=== PATIENT | male | born 1940 | race Hispanic/Latino ===

== ENCOUNTER 2019-03-04 10:05 | Inpatient (IN) | payer MEDICARE, OTHER ==
[2019-03-04] VITALS (8 sets, daily range): BP systolic 132–143; BP diastolic 62–78
[~2019-03-04] VITALS: Ht 167.6 cm; Wt 79.6 kg
[~2019-03-04 10:05] MED LIST: GEMFIBROZIL1 GM; GLYBURIDE5 MG; METFORMIN HCL500 MG
--- OUTSIDE RECORDS SUMMARY | 2019-03-04 10:08 | XMS REPORT ---
Author Author [facility] Address Unknown Phone Unavailable Care Team Providers Care Helper Driver Name Role Phone Unavailable Unavailable Payers Payer Name Policy Type Policy Number Effective Date Expiration Date Problems This patient has no known problems. Allergies, Adverse Reactions, Alerts Allergy Name Allergy Type Status Severity Reaction(s) Onset Date Inactive Date Treating Clinician Comments No Known Allergies DA Active U 2018-12-19 00:00:00 No Known Allergies DA Active U 2011-03-14 00:00:00 Medications This patient has no known medications. Results Test Description Test Time Test Comments Text Results Atomic Results Result Comments - CT C-SPINE W/O CONTRAST 2018-12-19 16:44:00 Name: DESHAWN [facility]SH[facility] : 1940 Age/S: 78 / M [address] [facility] Unit #: [id number] Loc: [place] [address] Phys: Alex Tran MD Acct: [id number] Dis Date: Status: REG ER PHONE #: [phone] Exam Date: 12/19/2018 1618 FAX #: [phone] Reason: Fall EXAMS: CPT CODE: [id number] CT C-SPINE W/O CONTRAST 25119 REASON FOR EXAM: Fall EXAM ORDER DATE: 12/19/2018 3:58 PM Ordering M.D.: Alex Tran MD PROCEDURE: - CT C-SPINE W/O CONTRAST FINDINGS: CT images of the cervical spine were obtained without IV contrast at 2.5mm. Reconstructed coronal and sagittal images were also provided. Dose reduction techniques were applied Aside from anterior, lateral, and posterior osteophytes at C4-5. The vertebral bodies are intact. The central canal is patent. Severe narrowing of the disc spaces at C4-5 and C5-6 IMPRESSION: Severe disc disease and degenerative changes at C4-5 and C5-6. No acute findings at 1644 Reported and signed by: Conrad Ward M.D. CC: Alex Tran MD Technologist:Alyssa Escalera RT(R); Mildred Browning CTDI: DLP: Trnscb Date/Time: 12/19/2018 (1643) t.SDR.VTL Orig Print D/T: S: 12/19/2018 (6097) CTDI: DLP: PAGE 1 Signed Report - CT HEAD/BRAIN W/O CONT 2018-12-19 16:20:00 Name: DESHAWN ASHFORD [facility] : 1940 Age/S: 78 / M [address] [facility] Unit #: [id number] Loc: [place] [address] Phys: Alex Tran MD Acct: [id number] Dis Date: Status: PRE ER PHONE #: [phone] Exam Date: 12/19/2018 1618 FAX #: [phone] Reason: Fall EXAMS: CPT CODE: [id number] CT HEAD/BRAIN W/O CONT 18836 REASON FOR EXAM: Fall EXAM ORDER DATE: 12/19/2018 3:58 PM Ordering Nemo: Alex Tran MD PROCEDURE: - CT HEAD/BRAIN W/O CONT COMPARISON: FINDINGS: CT images of the brain were obtained without IV contrast. Dose reduction techniques were applied. Mild patchy low densities appearance of the paraventricular region noted consistent with nonspecific white matter disease. The deras-white matter delineation is unremarkable. The ventricles, cisterns, and sulci are unremarkable. There is no evidence of hemorrhage, mass, mass effect. There is no evidence of acute or old infarct. The calvarium is intact. IMPRESSION: Nonspecific deep white matter disease. No acute findings. at 1620 Reported and signed by: Conrad Ward M.D. CC: Alex Tran MD Technologist:Alyssa Escalera RT(R); Mildred Browning CTDI: DLP: Trnscb Date/Time: 12/19/2018 (0047) Michelle.VTL Orig Print D/T: S: 12/19/2018 (7121) CTDI: MAIKEL: PAGE 1 Signed Report
[2019-03-04] MEDS ORDERED: PIPER-TAZ 3.375 GM 50 ML IV STA (10:17)
[2019-03-04] MEDS ORDERED: VANCOMYCIN 1GM/NS 250 ML 250 ML IV STA (10:17)
[2019-03-04] MEDS ORDERED: SODIUM CHLORIDE 0.9% 1000ML 1,000 ML IV STA (10:17)
[2019-03-04 11:14] LABS: BASOPHILS % 0.4 % (0.0-1.0); EOSINOPHILS # (AUTO) 0.3 (0.0-0.4); EOSINOPHILS % 2.6 % (0.0-6.0); HEMATOCRIT 37.1 % (38.2-49.6); HEMOGLOBIN 12.9 g/dL (14.0-18.0); LYMPHOCYTES # (AUTO) 1.7 (1.0-3.2); LYMPHOCYTES % 16.9 % (18.0-39.1); MEAN CORPUSCULAR HEMOGLOBIN 30.5 pg (28-32); MEAN CORPUSCULAR HGB CONC 34.8 g/dL (31-35); MEAN CORPUSCULAR VOLUME 87.7 fL (81-99); MONOCYTES # (AUTO) 0.9 (0.2-0.8); MONOCYTES % 9.5 % (4.4-11.3); NEUTROPHILS # (AUTO) 6.8 (2.1-6.9); NEUTROPHILS % 69.7 % (38.7-80.0); PLATELET COUNT 297 x10e3/uL (140-360); RED BLOOD COUNT 4.23 x10e6/uL (4.3-5.7)
[2019-03-04 11:30] LABS: ALANINE AMINOTRANSFERASE 13 IU/L (0-55); ALBUMIN 3.1 g/dL (3.5-5.0); ALBUMIN/GLOBULIN RATIO 0.8 (0.8-2.0); ALKALINE PHOSPHATASE 142 IU/L (40-150); ANION GAP 13.1 mmol/L (8-16); BLOOD UREA NITROGEN 7 mg/dL (7-26); BUN/CREATININE RATIO 7 (6-25); CALCIUM 10.5 mg/dL (8.4-10.2); CARBON DIOXIDE 27 mmol/L (22-29); CHLORIDE 95 mmol/L (98-107); CREATININE, SERUM 0.98 mg/dL (0.72-1.25); EST GLOMERULAR FILTRATION RATE > 60 ML/MIN (60-); POTASSIUM 4.1 mmol/L (3.5-5.1); SODIUM 131 mmol/L (136-145)
[2019-03-04 11:33] LABS: GLUCOSE 547 mg/dL (74-118)
--- NOTE | 2019-03-04 11:36 | Diagnostic Imaging Report ---
Exam: Right for foot, 3 views History: Concern for osteomyelitis Comparison: None. Findings: No acute, displaced fracture or dislocation. The bones are diffusely demineralized. Joint spaces are well-maintained with mild degenerative plantar calcaneal spur. No gross soft tissue defect or cortical erosive-destructive change to suggest osteomyelitis. Atherosclerotic vascular calcifications. Impression: No acute osseous abnormality. No plain radiographic evidence of osteomyelitis. Signed by: Dr. Bryn Vega M.D. on 03/04/2019 11:32 AM
[2019-03-04] MEDS ORDERED: INSULIN REGULAR, HUMAN 100 UNIT/1 ML 3ML VIAL IV ONE (11:45)
[2019-03-04 11:58] LABS: ABG PH 7.39 (7.31-7.41)
[2019-03-04 11:59] LABS: ABG HCO3 21 mmol/L (23-28); ABG PCO2 35 mmHg (41-51); ABG PO2 92 mmHg (80-105)
[2019-03-04] MEDS ORDERED: SODIUM CHLORIDE 0.9% 1000ML 1,000 ML IV SCH (12:09)
[2019-03-04] MEDS ORDERED: MORPHINE SULFATE 2 MG/ML SYR 1ML IV PRN (12:15)
[2019-03-04] MEDS ORDERED: DEXTROSE 50% SYRINGE 50 ML IV PRN (12:15)
[2019-03-04] MEDS ORDERED: ONDANSETRON HCL INJ 2MG/ML 2ML 2 MG/ML VIAL IV PRN (12:15)
[2019-03-04] MEDS ORDERED: IBUPROFEN 400 MG TAB PO PRN (12:15)
[2019-03-04] MEDS ORDERED: ACETAMINOPHEN 325 MG TAB PO PRN (12:15)
[2019-03-04] MEDS ORDERED: MORPHINE SULFATE INJ 4 MG/ML INJ 1ML IV PRN (13:15)
[2019-03-04] MEDS: VANCOMYCIN 1GM/NS 250 ML 250 ML IV SCH (14:55)
--- NOTE | 2019-03-04 15:44 | NUR ---
IAN SPOKE TO ER NURSE MORRIS REGARDING CASE MANAGEMENT ORDER. CM INFORMED THAT PATIENT LIVES ALONE AND FAMILY STATES HE IS UNABLE TO CARE FOR SELF. MILDRED DAWSON RECOMMENDED TO PLACE CATERING CONVENTION SERVICES MANAGER EVAL AND ASSISTED EVAL TO DETERMINE PLACEMENT APPROPRIATENESS. PER MORRIS, PATIENT WILL BE PLACED INPATIENT DUE TO MEDICAL NEEDS. CATERING CONVENTION SERVICES MANAGER, RENEE NOTIFIED AND WILL FOLLOW UP WITH ASSESSMENT.
[2019-03-04] MEDS: SODIUM CHLORIDE 0.9% 1000ML 1,000 ML IV SCH (16:35)
[2019-03-04] MEDS: PIPER-TAZ 3.375 GM 50 ML IV SCH (18:00)
--- NOTE | 2019-03-04 20:27 | NUR ---
RECEIVED PT IN BED AOX3 RESPIRATIONS ARE EVEN AND UNLABORED .PT HAS REDNESS TO THE SACRUM .RT LOWER EXTREMITY SWOLLEN AND RED .DENIES PAIN AT THIS TIME ..CALL LIGHT WITH IN REACH .CONTINUE TO MO MONITOR
[2019-03-04] MEDS: INSULIN REGULAR, HUMAN 100 UNIT/1 ML 3ML VIAL SQ SCH ×2 (21:00→21:26)
[2019-03-05] VITALS (10 sets, daily range): BP systolic 0–180; BP diastolic 59–79
[2019-03-05] MEDS: VANCOMYCIN 1GM/NS 250 ML 250 ML IV SCH ×2 (02:00→14:18)
[2019-03-05] MEDS: PIPER-TAZ 3.375 GM 50 ML IV SCH ×4 (06:00→17:37)
--- NOTE | 2019-03-05 06:34 | NUR ---
PT WAS THROWING URINAL TO THE PCT AND RUDE TO THE NURSES SECURITY CALLED AND TALK TO HIM CALL LIGHT WITH IN REACH .CONTINUE TO MONITOR
[2019-03-05 06:51] LABS: BASOPHILS # (AUTO) 0.1 (0.0-0.1); BASOPHILS % 0.4 % (0.0-1.0); EOSINOPHILS # (AUTO) 0.2 (0.0-0.4); LYMPHOCYTES # (AUTO) 2.3 (1.0-3.2); LYMPHOCYTES % 19.6 % (18.0-39.1); MEAN CORPUSCULAR HEMOGLOBIN 30.4 pg (28-32); MEAN CORPUSCULAR HGB CONC 34.3 g/dL (31-35); MEAN CORPUSCULAR VOLUME 88.6 fL (81-99); MONOCYTES # (AUTO) 0.8 (0.2-0.8); MONOCYTES % 6.5 % (4.4-11.3); NEUTROPHILS # (AUTO) 8.4 (2.1-6.9); NEUTROPHILS % 70.7 % (38.7-80.0); PLATELET COUNT 266 x10e3/uL (140-360); RED BLOOD COUNT 3.95 x10e6/uL (4.3-5.7); RED CELL DISTRIBUTION WIDTH 13.1 % (11.7-14.4)
[2019-03-05 07:09] LABS: ALANINE AMINOTRANSFERASE 13 IU/L (0-55); ALBUMIN 2.7 g/dL (3.5-5.0); ALBUMIN/GLOBULIN RATIO 0.8 (0.8-2.0); ALKALINE PHOSPHATASE 127 IU/L (40-150); ANION GAP 11.6 mmol/L (8-16); BLOOD UREA NITROGEN 6 mg/dL (7-26); BUN/CREATININE RATIO 8 (6-25); CALCIUM 9.1 mg/dL (8.4-10.2); CARBON DIOXIDE 23 mmol/L (22-29); CHLORIDE 103 mmol/L (98-107); CREATININE, SERUM 0.74 mg/dL (0.72-1.25); EST GLOMERULAR FILTRATION RATE > 60 ML/MIN (60-); GLUCOSE 116 mg/dL (74-118); POTASSIUM 3.6 mmol/L (3.5-5.1); SODIUM 134 mmol/L (136-145)
--- NOTE | 2019-03-05 07:18 | NUR ---
BEDSIDE REPORT GIVEN TO THE ONCOMING NURSE
[2019-03-05] MEDS: INSULIN REGULAR, HUMAN 100 UNIT/1 ML 3ML VIAL SQ SCH ×4 (07:30→21:00)
[2019-03-05] MEDS: GLYBURIDE 5 MG TAB PO SCH ×2 (09:00→17:37)
[2019-03-05] MEDS: SODIUM CHLORIDE 0.9% 1000ML 1,000 ML IV SCH ×3 (09:14→16:35)
--- NOTE | 2019-03-05 10:27 | NUR ---
SPOKE WITH DAUGHTER WHOM SIGNED CHOICE FOR [facility]. SPOKE ABOUT NEED FOR [facility] AND TRANSITION TO [facility] AFTER HIS SKILLED NEED. WILL BE ABLE TO GET ALL ACCOMPLISHED AT [facility]. FILED CHOICE IN CHART GAVE FACE SHEET FOR PT TO REP SHORTY [phone].
--- NOTE | 2019-03-05 14:32 | NUR ---
Pt is alert and oriented. Refuses to be cared for, refused PT for today, and wound care. Redness to sole of R foot, swelling to RLE. No c/o pain. Pt stated he just wants his toenails to be clipped then wants to go home. Resp WNL, no SOB or any s/s of resp distress noted. BP is elevated, pt states he has Hx of hypertension but does not take medications at home for BP. confirmed pt does not take medication for BP just for diabetes. Pt is noncompliant with his care, and care being provided by staff. Family at bedside through out the day.
--- NOTE | 2019-03-05 15:19 | NUR ---
WOUND CARE CONSULTATION - INITIAL EVALUATION Patient admitted for cellulitis of RLE, hyperglycemia from home to ER. HX: AMS, Dementia, Hyperlipidemia, DM, HTN LABS: WBC11.94 HGB12 HCT35 NEUT%70.7 VBH352 ALB2.7 BLE- Arterial US - BLE - Popliteal, INSURANCE POLICY ISSUE CLERK, ARTHUR Stenosis. RLE - Venous Study - No DVT Foot X-Ray - 03/04 No Evidence of Osteomyelitis Blood Cultures - No Growth PATIENT VISIT: Confused, Non Cooperative, Verbally abusive. Patient confused laying at edge of bed against side rail. Attempted to assist patient to center of bed. Unsuccessful, patient pushes against. Demanded urinal. Urinal provided followed by request of help to move of center of bed. Unable to provide thorough assessment, Patient became verbally abusive and asked me to get out of room. Niece at bedside and witnessed event. Right Foot presents with Dry scaly skin across toes. Foot dark reddened with laceration to dorsal aspect of foot. No drainage noted but likely source of entry for current infection. Plantar aspect shiny and sticky to touch. Toe nails thick and raised. Likely a combination of cellulitis and fungus involvement. Freeman Score 18 Moderate PUP Active RECOMMENDATION; 1. Right Foot - Laceration with Cellulitis: - Wash foot with Hibiclens soap and dry thoroughly. - Apply 1:1 mix of Polysporin and Mycostatin over feet every 12 Hours and Leave Open To Air. 2. Alternating Pressure Air Mattress 3. Turn and Reposition q2h using turning schedule clock. 4. Offload Heels with pillows while in bed. 5. Alternating Pressure Air Mattress . Thank you for consulting with Wound Care. Addendum: 03/05/19 at 1536 by Abbe Burt RN Amended: Links added.
[2019-03-05] MEDS: NYSTATIN 100,000 UNITS/GM CRM 30GM TUBE TOP SCH ×2 (15:45→23:00)
[2019-03-05] MEDS: BACITRACIN/POLYMYXIN 30 GM OINT TP SCH ×2 (16:30→23:00)
[2019-03-05] MEDS ORDERED: ONDANSETRON HCL 4 MG ORAL DISINTEGRATING TAB PO PRN (17:45)
--- NOTE | 2019-03-05 19:10 | NUR ---
Received patient in report. Patient resting in bed at this time. A&Ox3. Lungs clear. Bowel sounds active. No redness noted to sacrum. Patient did not complain of pain. R lower leg red and inflamed, with scab noted to top of foot, excoriations to heel. Heel was blanchable. Asked patient if he would allow medicine to be put on foot, patient refused. Placed pillow under leg to keep heel off bed. Alternating pressure mattress in place. RAC 20g IV asymptomatic, intact, and patent. Patient laying in semi-fowlers. Bed locked in lowest position. Urinal in reach. Call light in reach.
--- NOTE | 2019-03-05 20:30 | NUR ---
Patient refusing q2 turns, stating "I can't do it, I can't move like that." Alternating pressure pump in place and active.
--- NOTE | 2019-03-05 21:23 | NUR ---
Patient refused insulin at this time. BS 219, calling for 6 units. Explained to patient importance of lowering his blood sugar, patient stated "No, I don't want it." Asked patient if medication could be applied to R foot. Patient also refused. Explained importance of keeping wounds clean and applying medication to help them heal, patient still refused. Asked patient to please call if he changed his mind.
--- NOTE | 2019-03-05 23:00 | NUR ---
Patient requested medication to foot, stating he was ready for it now. Blanchable redness to heel and scabs noted to top of R foot and on R kent. Cleansed foot and lower leg with hibiclens soap, pat dry, applied equal parts nystatin cream and polysporin ointment. Left open to air. Put pillow under calf to leave heel off bed. Explained to patient keeping the pillow there will help with the pain he feels in the heel. Patient verbalized understanding.
[2019-03-06] VITALS (8 sets, daily range): BP systolic 135–193; BP diastolic 70–82
[2019-03-06] MEDS: PIPER-TAZ 3.375 GM 50 ML IV SCH ×4 (01:50→18:41)
[2019-03-06] MEDS: VANCOMYCIN 1GM/NS 250 ML 250 ML IV SCH ×2 (02:40→14:58)
--- NOTE | 2019-03-06 07:23 | NUR ---
PATIENT REPOSITIONED IN BED BY 2 STAFFS. ALERT AND VERBALLY RESPONSIVE. SKIN TEAR TO BACK OF RIGHT HAND, REDNESS TO SACRUM, REDNESS AND SWELLING TO RIGHT FOOT WITH MULTIPLE SCABS, SKIN TEAR TO RIGHT HEEL, DRYNESS TO LEFT FOOT. HEEL PROTECTOR OFFERED, PATIENT REFUSED. BED IN LOWER POSITION, CALL LIGHT AT REACH.
[2019-03-06] MEDS: INSULIN REGULAR, HUMAN 100 UNIT/1 ML 3ML VIAL SQ SCH ×4 (07:30→21:00)
[2019-03-06] MEDS: SODIUM CHLORIDE 0.9% 1000ML 1,000 ML IV SCH (08:00)
[2019-03-06] MEDS: GLYBURIDE 5 MG TAB PO SCH ×2 (09:03→17:32)
[2019-03-06] MEDS: NYSTATIN 100,000 UNITS/GM CRM 30GM TUBE TOP SCH ×2 (10:08→21:00)
--- NOTE | 2019-03-06 11:45 | NUR ---
PATIENT EXERCISED IN ROOM WITH PHYSICAL THERAPY. REPOSITIONED IN BED, FAMILY AT BED SIDE. CALL LIGHT AT REACH.
[2019-03-06] MEDS ORDERED: ACETAMINOPHEN 325 MG TAB PO PRN (14:00)
--- NOTE | 2019-03-06 15:03 | NUR ---
PATIENT IN BED RESTING WITH EYES CLOSED, NO RESPIRATORY DISTRESS OBSERVED. CALL LIGHT AT REACH.
--- NOTE | 2019-03-06 15:29 | NUR ---
PATIENT REQUESTED AND RECEIVED BED STEWART MULTIPLE TIME. WHEN OFFERED TO BE CHECKED, PATIENT REFUSED MULTIPLE TIME AND WANT TO SIT ON BED STEWART FOR MORE THAN 30 MINUTES. PATIENT EDUCATED THAN IT CAN CAUSE SKIN DAMAGE HE STATED "I AM FINE".
[2019-03-06] MEDS: BACITRACIN/POLYMYXIN 30 GM OINT TP SCH (17:32)
--- NOTE | 2019-03-06 17:36 | NUR ---
PATIENT PULLED HIS IV OUT, TIP INTACT. PRESSURE APPLIED TO SITE AND COVERED WITH 4X4 GAUZE. NEW IV 20 GAUGE INSERTED TO RIGHT FOREARM. PATIENT TOLERATED PROCEDURE WELL.
--- NOTE | 2019-03-06 20:18 | NUR ---
RECEIVE DPT IN BED AOX3 .NO ACUTE DISTRESS NOTED .RT FOOT RED AND SLIGHTLY SWOLLEN FAMILY AT THE BEDSIDE.CALL LIGHT WITH IN REACH .CONTINUE TO MONITOR
[2019-03-07] VITALS (7 sets, daily range): BP systolic 141–173; BP diastolic 67–79
--- NOTE | 2019-03-07 00:09 | Consultation ---
DATE OF CONSULTATION: Cardiology Consultation. REASON FOR CONSULTATION: Peripheral arterial disease. HISTORY OF PRESENT ILLNESS: This is an 78-year-old man with a history of diabetes mellitus, hyperlipidemia, dementia, and hypertension, who presented to the emergency department with worsening right foot pain. The patient has mild confusion and cannot provide me exact details of his medical history or presenting symptoms. No family is at bedside. The patient evidently reports right lower extremity pain and is progressively worsened over the last couple of months. PAST MEDICAL HISTORY: As stated above. PAST SURGICAL HISTORY: Unknown. PAST FAMILY HISTORY: Unknown. SOCIAL HISTORY: No illicit drug, alcohol, or tobacco use. ALLERGIES: NO KNOWN DRUG ALLERGIES. MEDICATIONS: See medication reconciliation form. PHYSICAL EXAMINATION: VITAL SIGNS: Temperature 97.6, heart rate 74, respirations are 18, blood pressure is 168/72, oxygen saturation 98% on room air. GENERAL: Well-appearing, well-built elderly man, lying comfortably in bed. HEAD: Normocephalic, atraumatic. EYES: Extraocular muscles are intact. Conjunctivae clear. NECK: No JVD. No bruits. CARDIOVASCULAR: Regular rate and rhythm. Mild systolic murmur at the left sternal border. LUNGS: Clear to auscultation. ABDOMEN: Soft, nontender, nondistended. EXTREMITIES: No clubbing, cyanosis or edema. VASCULAR: Diminished pulses in bilateral lower extremities, right greater than left. SKIN: Dry and intact. Erythema of the right lower extremity. LABORATORY DATA: Reviewed. Hemoglobin 12, creatinine 0.74. Arterial Doppler showed diminished waveforms in the tibial vessels of the right lower extremity and superficial femoral artery. IMPRESSION: 1. Peripheral arterial disease. 2. Cellulitis. 3. Hypertension. 4. Hyperlipidemia. 5. Diabetes mellitus. RECOMMENDATIONS: We will need to discuss quality of life and goals of care with the family. The patient states that he does not walk and essentially he is bed-bound or in a wheelchair. Continue infectious treatment per primary team. We will continue to follow along closely. DO RADHA Mays/HAYESL /[id number]
[2019-03-07] MEDS: VANCOMYCIN 1GM/NS 250 ML 250 ML IV SCH ×2 (02:00→14:13)
[2019-03-07] MEDS: BACITRACIN/POLYMYXIN 30 GM OINT TP SCH ×2 (04:30→17:10)
[2019-03-07] MEDS: PIPER-TAZ 3.375 GM 50 ML IV SCH ×4 (06:38→18:43)
--- NOTE | 2019-03-07 07:13 | NUR ---
PT AGITATED DURING THE NIGHT.NOTIFIED DR RODRÍGUEZ .CALL LIGHT WITH IN REACH.BEDSIDE REPORT GIVEN TO THE ONCOMING NURSE
[2019-03-07] MEDS: INSULIN REGULAR, HUMAN 100 UNIT/1 ML 3ML VIAL SQ SCH ×4 (07:30→21:00)
--- NOTE | 2019-03-07 07:30 | NUR ---
PATIENT IN BED RESTING WITH NO RESPIRATORY DISTRESS. REQUESTED TO TALK TO HIS AND PHONE NUMBER DIALED. BED IN LOWER POSITION AND LOCKED. CALL LIGHT AT REACH.
--- NOTE | 2019-03-07 08:41 | NUR ---
SPOKE WITH ANOTHER DAUGHTER TEQUILA TODAY LET KNOW ORDER IS IN FOR [facility]. SHE STATES THEY WILL DISCUSS AGAIN AND LET KNOW DECISION TODAY
[2019-03-07] MEDS: GLYBURIDE 5 MG TAB PO SCH ×2 (09:38→17:10)
[2019-03-07] MEDS: NYSTATIN 100,000 UNITS/GM CRM 30GM TUBE TOP SCH ×2 (09:39→21:00)
--- NOTE | 2019-03-07 11:04 | NUR ---
PATIENT IN ROOM EXERCISING IN BED WITH PHYSICAL THERAPY. CALL LIGHT AT REACH. FAMILY AT BED SIDE
--- NOTE | 2019-03-07 15:49 | NUR ---
FAMILY STATES THEY HAVE ALL AGREED FOR [facility], FAXED CLINICALS TO FACILITY [phone] WAITING ON AUTH.
--- NOTE | 2019-03-07 15:50 | NUR ---
RTF COMPLETED AND LEFT WITH PACKET
--- NOTE | 2019-03-07 17:19 | Consultation ---
DATE OF CONSULTATION: CHIEF COMPLAINT AND HISTORY OF CHIEF COMPLAINT: Mr. Santoro is a gentleman, 78 years of age, who admitted with laceration and pain on his right side. Apparently, he has a history of being confused and is somewhat combative this morning, but generally cooperative with regard to an evaluation of his lower extremity issues. He is assisted by his and his daughter, both of whom are in the room and are able to converse and allow him to cooperate. The patient does have a history of diabetes with hyperlipidemia, dementia, and hypertension. He apparently presented to the emergency room with right lower extremity pain and progressively worsening. The patient's previous medical history is well documented elsewhere within the chart. ALLERGIES: THE PATIENT HAS NO KNOWN DRUG ALLERGIES. CURRENT MEDICATIONS: Well documented in the medication reconciliation form. PHYSICAL EXAMINATION: LOWER EXTREMITY: Vascular status, the patient has nonpalpable pedal pulses in either dorsalis pedis or posterior tibial. Skin temperature is warm. Cap refill appears to be adequate to the digits. Neurological, the patient has what appears to be loss of protective sensation as evidenced by Aberdeen-Sia monofilament testing. Dermatologically, the patient has onychomycosis of all lower extremity digital nails. Dermatologically, no other significant lesions are present. There is what appears to be an old laceration on the dorsal lateral aspect of the foot, which is somewhat inflamed. There does not appear to be any underlying abscessing or cellulitis at this point and that wound appears to be slowly healing. Musculoskeletal evaluation is otherwise deferred and apparently the patient is nonambulatory. There are no wounds on the posterior aspect of either left or right heels. He does complain of pain in the posterior aspect of the right heel and may be suffering from chronic pressure. He has waffle style heel protectors on, which appear to be helping. DIAGNOSIS: Severe peripheral arterial disease. Apparently, the patient has refused further workup on that. Dr. Perez's note is appreciated. The patient also has a degree of cellulitis with the laceration on the right lower extremity, which is slowly healing and responding to IV antibiotics. The patient also has onychomycosis x10. We did discuss outpatient nail debridement, which the patient states he is amenable to. His family states they will be able to bring him into the office for appropriate nail care due to the severity of his extremity and potential for loss of limb with severe PID, distal peripheral neuropathy and onychomycosis with the associated inflamed tissues. Otherwise, the patient appears to be improving with regard to his circumstances here in the hospital and is okay to discharge to either long-term care facility or home care as deemed appropriate by family and medical physicians. I will gladly follow him on an outpatient basis once discharged with regard to nail care and any further needs for local wound care. CHRIS Maravilla/BALWINDER /[id number]
--- NOTE | 2019-03-07 20:47 | NUR ---
RECEIVED PT IN BED AOX3 .NO ACUTE DISTRESS NOTED .CALL LIGHT WITH IN REACH .CONTINUE TO MONITOR
--- NOTE | 2019-03-07 21:35 | Progress Note ---
DATE: Cardiology Progress Note SUBJECTIVE: The patient feeling overall better. The patient denies chest pain, shortness of breath, or improved leg pain. OBJECTIVE: VITAL SIGNS: Temperature is 98.2, heart rate 75, respirations are 19, blood pressure is 163/77, and oxygen saturation 98% on room air. GENERAL: He is well-appearing, well-built, elderly male lying comfortably in bed. CARDIOVASCULAR: Regular rate and rhythm. LUNGS: Clear to auscultation. ABDOMEN: Soft and nontender. EXTREMITIES: Diminished pulses. IMPRESSION: 1. Peripheral arterial disease. 2. Cellulitis. 3. Hypertension. 4. Hyperlipidemia. 5. Diabetes mellitus. RECOMMENDATIONS: The patient does have severe peripheral arterial disease. The patient is essentially bed-bound and does not walk. He had a long discussion with family and they wished to proceed with conservative therapy at this point in time. Continue all current cardiovascular medications. The patient may be discharged and follow up as an outpatient. DO RADHA Mays/BALWINDER /[id number]
[2019-03-08] VITALS: BP 145/73
[2019-03-08] MEDS: VANCOMYCIN 1GM/NS 250 ML 250 ML IV SCH (02:00)
[2019-03-08] MEDS: BACITRACIN/POLYMYXIN 30 GM OINT TP SCH (04:30)
[2019-03-08 04:38] VITALS: BP 150/68
[2019-03-08] MEDS: PIPER-TAZ 3.375 GM 50 ML IV SCH ×3 (06:00→12:54)
--- NOTE | 2019-03-08 06:33 | NUR ---
PT RESTED DURING THE NIGHT .REFUSED BATH .DENIES PAIN .CALL LIGHT WITH IN REACH .CONTINUE TO MONITOR
--- NOTE | 2019-03-08 07:17 | NUR ---
REPORT GIVEN TO THE ONCOMING NURSE
[2019-03-08] MEDS: INSULIN REGULAR, HUMAN 100 UNIT/1 ML 3ML VIAL SQ SCH ×2 (07:30→11:30)
[2019-03-08 08:00] VITALS: BP 156/70
[2019-03-08] MEDS: GLYBURIDE 5 MG TAB PO SCH (08:16)
--- NOTE | 2019-03-08 09:05 | NUR ---
patient resting in bed, Alert with no distress
[2019-03-08] MEDS: NYSTATIN 100,000 UNITS/GM CRM 30GM TUBE TOP SCH (10:22)
--- NOTE | 2019-03-08 10:22 | NUR ---
cleansed rt foot and applied nystatin cream on it
--- NOTE | 2019-03-08 10:53 | NUR ---
CM TO BEDSIDE TO DISCUSS IMM AND PATIENT'S RIGHTS IN DECISION MAKING REGARDING CARE. CM ANSWERED QUESTIONS. PATIENT VERBALIZED UNDERSTANDING OF DISCUSSION. SIGNATURE OBTAINED ON IMM - COPY TO CHART AND COPY LEFT AT THE BEDSIDE.
[2019-03-08 12:00] VITALS: BP 181/77
--- NOTE | 2019-03-08 14:40 | NUR ---
Report called to Mr Sheets KENNY @ [facility] home, awaiting ambulance to pick patient, 2 daughters with the patient
--- NOTE | 2019-03-08 15:27 | NUR ---
patient discharged to [facility]. Prescription, wound care instructions in the chart and the Nurse in SNF aware about it. patient denies any pain or SOB, EMS here to pick patient, daughter at bed side
[2019-03-08] MEDS ORDERED: LEVAQUIN500 MG PO (15:33)
== END 2019-03-08 15:27 | DRG 603 ==
LOC: ER 10:05 → ERHOLD 12:09 → MED/SURG3 13:42
PROVIDERS: ADMIT Internal Medicine; ATTEND Internal Medicine
DX: L03.115 Cellulitis of right lower limb (principal); E11.51 Type 2 diabetes mellitus with diabetic peripheral angiopathy without gangrene; Z79.4 Long term (current) use of insulin
CPT/HCPCS: 36415; 36600; 80053; 80202; 82805; 82948; 83605; 85025; 87040; 93005; 93925; 93971; 96372; 97139; 99284; J2543; J3370; J7030

== ENCOUNTER 2019-05-01 09:17 | Emergency (ER) | payer MEDICARE ==
[~2019-05-01] VITALS: Ht 167.6 cm; Wt 79.4 kg
[~2019-05-01 09:17] MED LIST changes: +LEVAQUIN500 MG PO
--- NOTE | 2019-05-01 10:14 | NUR ---
PATIEN UPSET THAT WE ARE PUTTING HIM ON BEDPAN TO HAVE BOWEL MOVEMENT. PATIENT UNSTEADY WHILE ATTEMPTING TO SIT UP TO AUSCULATE LUNGS. HE WANTS TO GO TO BATHROOM. EXPLAINED TO HIM WE NEED TO KEEP HIM IN THE BED AT THE MOMENT AND THEY WILL BE TAKING HIM DOWN TO CT HEAD. THEN ASK TO URINATE. URINAL PLACED BETWEEN HIS LEGS AND HE STATES, "ILL HOLD IT MYSELF"
--- NOTE | 2019-05-01 10:40 | Diagnostic Imaging Report ---
EXAMINATION: Head CT HISTORY: Status post fall, posterior scalp hematoma. COMPARISON: None. TECHNIQUE: Multidetector axial images were obtained without contrast from the foramen magnum to the vertex . The images were reconstructed using brain and bone algorithms. Thin section brain images were reformatted into coronal and sagittal planes. Image quality: Motion/streaking artifact limits the evaluation of the skull base and posterior cranial fossa. Dose modulation, iterative reconstruction, and/or weight based adjustment of the mA/kV was utilized to reduce the radiation dose to as low as reasonably achievable. FINDINGS: Parenchyma: 1. Severe confluent supratentorial and matter hypodensities, most likely nonspecific chronic microvascular ischemic changes, additional superimposed recent ischemic lesion or demyelinating lesion cannot totally be excluded.. 2. Small chronic lacunar infarcts in the head of the left caudate nucleus and left subinsular region. 3. No mass or hemorrhage. No CT evidence of acute territorial vascular insult. Extra-axial spaces:No abnormal density. No extra-axial fluid collections Brain volume: Prominent disproportionate atrophy of the corpus callosum , correlate for baseline demyelinating condition. Ventricles: No hydrocephalus or displacement. Arteries: No density suggestive of thrombus. Dural sinuses: No abnormal density. Extra-axial spaces: No abnormal density. Foramen magnum: No mass, Chiari malformation, or basilar invagination. Sella: No obvious mass. Paranasal/mastoid sinuses: Mucosal infiltrate thickening with partial opacification of left sphenoid sinus, otherwise clear. Skull/Scalp: No lytic or blastic lesions. No fractures. IMPRESSION: 1. No acute posttraumatic intracranial abnormalities, particularly no hemorrhage. 2. Severe supratentorial white matter hypodensities as detailed above. Signed by: Dr. Ana Laura Ramon M.D. on 05/01/2019 10:37 AM
--- NOTE | 2019-05-01 11:04 | NUR ---
ATTEMPTED TO CALL , NO ONE ANSWERING THE PHONE. TOLD BY EMS SHE WAS ON HER WAY WHEN THEY BROUGHT HIM IN [phone]
--- NOTE | 2019-05-01 11:09 | NUR ---
ATTEMPTED TO CALL . NO ANSWER ORDERED PATIENT MEAL TRAY AND WILL CHECK BLOOD SUGAR.
--- NOTE | 2019-05-01 11:38 | NUR ---
ATTEMPTED TO REACH . NO ANSWER. VERIFIED PHONE NUMBER WITH PATIENT. IT IS CORRECT
--- NOTE | 2019-05-01 11:45 | NUR ---
I LET PATIENT KNOW WE ARE NOT ABLE TO GET AHOLD OF HIS . HE STATED. "THATS NORMAL, YOUR GOING TO HAVE TO CALL THE POLICE TO CONTACT HER"
--- NOTE | 2019-05-01 11:53 | NUR ---
[employer] CALLED. SPOKE TO BRIDGER. SHE WILL DISPATCH A CAR TO CHECK ON PATIENTS
--- NOTE | 2019-05-01 12:01 | NUR ---
RECEIVED CALL BACK FROM [place] WITH [employer]. STATED THEY MADE NO CONTACT WITH ANYONE AND THERE AREA NO VEHICLES AT THE RESIDENCE.
--- NOTE | 2019-05-01 12:56 | NUR ---
DAUGHTERS AND ARRIVE TO ER AND INFORMED PATIENT HAS BEEN DISCHARGED. DAUGHTER STATES THAT SHE WAS UNDER THE UNDERSTANDING THAT PATIENT WAS GOING TO BE SENT TO A SENIOR CARE AND STAY THERE SINCE PATIENT IS VERY RUDE PER LAMBERTO. AGAIN INFORMED THAT PATIENT CAME TO ER FOR FALL, CT WAS DONE AND FRACTURE/BRAIN BLEED RULED OUT. PATIENT HAS BEEN DISCHARGED HOME FOR ABOUT 2 HOURS, VERBALIZES UNDERSTANDING. PATIENT INFORMANED THAT THEY CAN CALL [facility] AND FURTHER INQUIRE ABOUT ADMITTING PATIENT TO SENIOR CARE IF THAT IS WHAT THEY WANT TO DO. DAUGHTER VERBALIZED UNDERSTANDING.
--- NOTE | 2019-05-01 12:58 | NUR ---
[facility] CALLED. ETA 1 HR DISCHARGE INFO GIVEN TO . PATIENTS FAMILY MEMBERS ALSO HERE
--- NOTE | 2019-05-01 14:00 | NUR ---
RECALLED [facility]. DISPATCHER STATES, "THEY ARE IN ROUTE'. MADE FAMILY AWARE
--- NOTE | 2019-05-01 14:00 | NUR ---
PATIENT ASKING TO HAVE BM. PLACED ON BED STEWART. HE IS UPSET AND ASKING TO GO TO BATHROOM. PATIENT HAS HX OF FALLING THIS AM
== END 2019-05-01 14:36 | disposition home or self-care (01) ==
LOC: ER 09:17
DX: S00.03XA Contusion of scalp, initial encounter (principal); W01.10XA Fall on same level from slipping, tripping and stumbling with subsequent striking against unspecified object, initial encounter; Y92.009 Unspecified place in unspecified non-institutional (private) residence as the place of occurrence of the external cause; E11.9 Type 2 diabetes mellitus without complications; Z79.84 Long term (current) use of oral hypoglycemic drugs; I10 Essential (primary) hypertension; F03.90 Unspecified dementia, unspecified severity, without behavioral disturbance, psychotic disturbance, mood disturbance, and anxiety
CPT/HCPCS: 36415; 70450; 82948; 99284

== ENCOUNTER 2019-10-01 12:20 | Emergency (ER) | payer MEDICARE ==
[~2019-10-01] VITALS: Ht 167.6 cm; Wt 79.4 kg
--- NOTE | 2019-10-01 12:44 | NUR ---
EMS reports they have been to the pts residence approx a dozen times in the past couple of months. Reports pt slips out of wheelchair and spouse wants patient checked out but rarely wants to be transported to the ER. Family reports that patient uses wheelchair to get around due to back surgery he had and unable to ambulate appropriately. Pt lives alone with elderly spouse and she is unable to fully help him with his ADL's. Pt gets frustrated and tries to walk alone which causes him to fall.
--- NOTE | 2019-10-01 13:50 | Diagnostic Imaging Report ---
Exam: Head CT without contrast History: Right arm pain, rule out fracture Comparison studies: Head CT 05/01/2019 Technique: Axial images were obtained from the skull base to the vertex. Coronal and sagittal images reconstructed from the axial data. Dose modulation, iterative reconstruction, and/or weight based adjustment of the mA/kV was utilized to reduce the radiation dose to as low as reasonably achievable. Radiation dose: Total DLP: 1363.66 mGy*cm. Estimated effective dose: DLP x 0.015 Intravenous contrast: None Findings: Scalp: No abnormalities. Bones: No fractures, blastic or lytic lesions. Brain sulci: Prominent. Ventricles: Moderate compensatory dilatation. No hydrocephalus. Extra-axial spaces: No masses, no fluid collection. Parenchyma: No mass, acute hemorrhage or acute cortical vascular insults. Confluent hypodensity throughout the supratentorial white matter nonspecific most compatible chronic microvascular ischemic changes. Small chronic lacunar infarcts present in the bilateral deep supratentorial white matter, left subinsular white matter and in the caudate nuclei. Sellar/suprasellar region: No abnormalities. Craniocervical junction: Patent foramen magnum. No Chiari one malformation. Paranasal sinuses: Mild mucosal thickening with small fluid/secretions in the left sphenoid sinus. Incidental findings: Atherosclerotic calcifications in the carotid siphons and intradural vertebral arteries. IMPRESSION: No acute intracranial abnormalities. No changes from the prior head CT of 05/01/2019. Persistent findings: 1. Moderate generalized parenchymal volume loss. 2. Severe chronic microvascular ischemic changes 3. Left sphenoid sinusitis. Signed by: Dr. Bryn Blank M.D. on 10/01/2019 1:47 PM
--- NOTE | 2019-10-01 14:08 | Diagnostic Imaging Report ---
History: Rule out fracture Comparison studies: Cervical spine CT of 09/03/2012 is unavailable on the PACS for comparison at the time dictation. Technique: Axial images were obtained through the cervical region.. Coronal and sagittal images reconstructed from the axial data.. Intravenous contrast: None Findings: Fractures: None. Soft tissue injuries: No gross acute abdomen malleus. Atlantoaxial articulation: Intact. Alignment: Mild reversal usual cervical lordotic curvature centered at C4-C5. No subluxations. Cervicomedullary junction: No abnormalities. The foramen magnum is patent. Vertebrae: No fractures, infection or neoplasm. Degenerative changes: Severely degenerated C4-C5 and C5-C6 discs with loss of disc height. Mildly degenerated C6-7 disc. Central disc protrusions at C2-C3 and at C3-C4 and disc osteophyte complexes at C4-C5 and C5-C6 result in mild spinal canal stenosis. Moderate facet arthrosis on the right at C3-C4. Mild foraminal stenosis bilaterally at C4-C5 and at C5-C6 due to uncovertebral and facet arthrosis. Incidental findings: Partially right posterior mastoid opacification. Scattered calcified atherosclerosis. Heterogeneously thyroid gland which is nonspecific but could be correlated with thyroid function testing. IMPRESSION: 1. No cervical spine fracture or subluxation. 2. Multilevel degenerative changes as described. 3. Ligament, spinal cord and or vascular abnormalities cannot be excluded on the basis of this examination Signed by: Dr. Bryn Blank M.D. on 10/01/2019 2:04 PM
--- NOTE | 2019-10-01 15:33 | NUR ---
Ami from [facility] evaluating patient and speaking with family
[2019-10-01 15:55] LABS: BASOPHILS % 0.3 % (0.0-1.0); EOSINOPHILS # (AUTO) 0.2 (0.0-0.4); EOSINOPHILS % 1.5 % (0.0-6.0); HEMATOCRIT 37.3 % (38.2-49.6); HEMOGLOBIN 12.5 g/dL (14.0-18.0); LYMPHOCYTES # (AUTO) 1.5 (1.0-3.2); LYMPHOCYTES % 14.3 % (18.0-39.1); MEAN CORPUSCULAR HEMOGLOBIN 30.8 pg (28-32); MEAN CORPUSCULAR HGB CONC 33.5 g/dL (31-35); MEAN CORPUSCULAR VOLUME 91.9 fL (81-99); MONOCYTES # (AUTO) 0.6 (0.2-0.8); MONOCYTES % 5.9 % (4.4-11.3); NEUTROPHILS % 77.5 % (38.7-80.0); PLATELET COUNT 291 x10e3/uL (140-360); RED BLOOD COUNT 4.06 x10e6/uL (4.3-5.7); RED CELL DISTRIBUTION WIDTH 13.8 % (11.7-14.4)
[2019-10-01 16:13] LABS: ALANINE AMINOTRANSFERASE 9 IU/L (0-55); ALBUMIN 3.4 g/dL (3.5-5.0); ALKALINE PHOSPHATASE 125 IU/L (40-150); ANION GAP 16.9 mmol/L (8-16); BLOOD UREA NITROGEN 7 mg/dL (7-26); BUN/CREATININE RATIO 9 (6-25); CALCIUM 9.4 mg/dL (8.4-10.2); CARBON DIOXIDE 22 mmol/L (22-29); CHLORIDE 101 mmol/L (98-107); CREATININE, SERUM 0.78 mg/dL (0.72-1.25); EST GLOMERULAR FILTRATION RATE > 60 ML/MIN (60-); GLUCOSE 154 mg/dL (74-118); POTASSIUM 3.9 mmol/L (3.5-5.1); SODIUM 136 mmol/L (136-145)
--- NOTE | 2019-10-01 17:37 | NUR ---
Family states unable to lift patient to bring him inside. EMS contacted for transport back to patient's residence.
--- NOTE | 2019-10-01 17:43 | NUR ---
[facility] contacted for transport to residence ETA 35 min.
== END 2019-10-01 19:02 | disposition home or self-care (01) ==
LOC: ER 12:20
DX: R53.1 Weakness (principal); W05.0XXA Fall from non-moving wheelchair, initial encounter; Y92.008 Other place in unspecified non-institutional (private) residence as the place of occurrence of the external cause; F03.90 Unspecified dementia, unspecified severity, without behavioral disturbance, psychotic disturbance, mood disturbance, and anxiety; I10 Essential (primary) hypertension; E11.9 Type 2 diabetes mellitus without complications
CPT/HCPCS: 36415; 70450; 72125; 80053; 85025; 99283